=== PATIENT | male | born 1950 | race Two or more races ===

== ENCOUNTER 2018-03-24 06:53 | Day surgery (SDC) | payer OTHER ==
[~2018-03-24] VITALS: Ht 177.8 cm; Wt 79.4 kg
[2018-03-24 07:28] VITALS: BP 156/83
[2018-03-24 12:49] VITALS: BP 127/82
== END 2018-03-24 11:00 | disposition home or self-care (01) ==
LOC: DS 06:53 → GI 08:45 → OR 08:45 → DS 11:00
PROVIDERS: Internal Medicine Gastroenterology
PROC: 0DJD8ZZ Inspection of Lower Intestinal Tract, Via Natural or Artificial Opening Endoscopic (ICD-10-PCS; principal; 2018-03-24 08:45)
DX: Z12.11 Encounter for screening for malignant neoplasm of colon (principal); K64.9 Unspecified hemorrhoids
CPT/HCPCS: 45378; J1200; J1610; J2250; J2310; J3010; J3490